=== PATIENT | female | born 1960 | race Caucasian/White ===

== ENCOUNTER 2020-02-24 09:12 | Emergency (ER) | payer SELFPAY ==
[~2020-02-24] VITALS: Ht 157.5 cm; Wt 49.1 kg
[2020-02-24 09:58] VITALS: BP 133/90
== END 2020-02-24 10:47 | disposition home or self-care (01) ==
LOC: ER 09:13
DX: Z20.828 Contact with and (suspected) exposure to other viral communicable diseases (principal)
CPT/HCPCS: 36415; 87635; 99283